=== PATIENT | male | born 1995 | race Two or more races ===

== ENCOUNTER 2021-04-24 20:48 | Emergency (ER) | payer SELFPAY ==
[2021-04-24] MEDS ORDERED: Sodium Chloride 0.9% 10 ML Syringe FLUSH PRN (21:05)
[2021-04-24] MEDS ORDERED: Aspirin 81 MG Tab.Chew ONE (21:32)
[2021-04-24] MEDS ORDERED: Nitroglycerin 0.4 MG Tab.SL SL PRN (21:32)
[2021-04-24] MEDS ORDERED: Aspirin 81 MG Tab.Chew PO ONE (21:32)
[2021-04-24] MEDS ORDERED: Nitroglycerin 0.4 MG Tab.SL ONE (21:32)
[2021-04-24 21:54] LABS: ANION GAP 13.4 mmol/L (5-15); CHLORIDE,CL 103 mmol/L (98-107); SODIUM,NA 139 mmol/L (136-145)
--- NOTE | 2021-04-24 21:55 | EDM.PDOC ---
ED HPI GENERAL MEDICAL PROBLEM - General Chief Complaint: General Stated Complaint: chest pain Time Seen by Provider: 04/24/21 21:13 Source of Information: Reports: Patient, Family (mom) History Limitations: Reports: No Limitations - History of Present Illness INITIAL COMMENTS - FREE TEXT/NARRATIVE: Patient presents with sharp severe pain in left upper chest, left shoulder, neck and upper back that started an hour ago. He rated it 9/10 on arrival and 8/10 now. He has never had this before. He has also had significant shortness of breath with it. EKG shows sinus bradycardia with arrhythmia; patient says he has had bradycardia for 5 years and has had pacemaker recommended twice by cardiology but he refused. He now deals with marked fatigue but no other major chronic related problems. He uses marijuana regularly. He used to use cocaine heavily but stopped 13 months ago. Denies meth use. Chest Pain Score (Numeric/FACES): 9 - Related Data Allergies Allergy/AdvReac Type Severity Reaction Status Date / Time chocolate flavor Allergy Cannot Verified 04/24/21 21:06 Remember Penicillins Allergy Cannot Verified 04/24/21 21:06 Remember watermelon Allergy Cannot Verified 04/24/21 21:06 Remember ED ROS GENERAL - Review of Systems Review Of Systems: See Below Constitutional: Denies: Fever, Weakness HEENT: Denies: Throat Pain, Vision Change Respiratory: Reports: Shortness of Breath. Denies: Cough Cardiovascular: Reports: Chest Pain. Denies: Syncope GI/Abdominal: Denies: Abdominal Pain, Vomiting : Denies: Dysuria, Flank Pain Musculoskeletal: Reports: Neck Pain, Shoulder Pain, Back Pain. Denies: Arm Pain, Hand Pain, Leg Pain Skin: Denies: Cyanosis, Jaundice, Mottled, Pallor, Diaphoresis Neurological: Denies: Confusion, Dizziness, Headache, Seizure, Syncope, Trouble Speaking, Difficulty Walking Psychiatric: Denies: Agitation, Anxiety, Confusion ED EXAM, GENERAL - Physical Exam Exam: See Below Exam Limited By: No Limitations General Appearance: Alert, WD/WN, No Apparent Distress Eye Exam: Bilateral Eye: EOMI, Normal Inspection, PERRL Ears: Normal External Exam, Hearing Grossly Normal Nose: Normal Inspection, No Blood Throat/Mouth: Normal Inspection, Normal Lips, Normal Voice, No Airway Compromise Head: Atraumatic, Normocephalic Neck: Normal Inspection, Supple, Non-Tender, Full Range of Motion Respiratory/Chest: No Respiratory Distress, Lungs Clear, Normal Breath Sounds, No Accessory Muscle Use, Chest Non-Tender Cardiovascular: Normal Peripheral Pulses, Regular Rate, Rhythm (with bradycardia most of the time) GI/Abdominal: Normal Bowel Sounds, Soft, Non-Tender, No Organomegaly, No Distention Back Exam: Full Range of Motion, Other (tender between left scapula and vertebrae). No: CVA Tenderness (L), CVA Tenderness (R) Extremities: Normal Inspection, Normal Range of Motion Neurological: Alert, Oriented, Normal Cognition, No Motor/Sensory Deficits Psychiatric: Normal Affect, Normal Mood Skin Exam: Warm, Dry, Intact, Normal Color, No Rash Course - Vital Signs Last Recorded V/S: Last Vital Signs Temp 97.8 F 04/24/21 20:57 Pulse 44 L 04/24/21 23:46 Resp 12 04/24/21 23:46 BP 136/77 04/24/21 23:46 Pulse Ox 99 04/24/21 23:46 - Orders/Labs/Meds Orders: Active Orders 24 hr Category Date Time Status EKG Documentation Completion [RC] ASDIRECTED Care 04/24/21 21:19 Active Peripheral IV Care [RC] . DIRECTED Care 04/24/21 21:05 Active Ang Chest [CT] Stat Exams 04/24/21 21:39 Ordered Nitroglycerin [Nitrostat] Med 04/24/21 21:32 Active 0.4 mg SL Q5M PRN Sodium Chloride 0.9% [Normal Saline] 100 ml Med 04/24/21 22:30 Active IV ASDIRECTED Sodium Chloride 0.9% [Saline Flush] Med 04/24/21 21:05 Active 10 ml FLUSH Q8HR PRN Peripheral IV Insertion Adult [OM.PC] Routine Oth 04/24/21 21:05 Ordered EKG 12 Lead [EK] Stat Ther 04/24/21 20:56 Ordered Medication Orders Sodium Chloride (Normal Saline) 100 mls @ 200 mls/hr IV ASDIRECTED SAMMY Last Admin: 04/24/21 22:30 Dose: 200 mls/hr Documented by: COLBY Nitroglycerin (Nitroglycerin 0.4 Mg Tab.Sl) 0.4 mg SL Q5M PRN PRN Reason: Chest Pain Last Admin: 04/24/21 21:32 Dose: 0.4 mg Documented by: MORIS Sodium Chloride (Sodium Chloride 0.9% 10 Ml Syringe) 10 ml FLUSH Q8HR PRN PRN Reason: keep vein open Last Admin: 04/24/21 21:13 Dose: 10 ml Documented by: MORIS Labs: Laboratory Tests 04/24/21 04/24/21 Range/Units 21:13 21:13 WBC 7.38 (5.00-10.00) 10^3/uL RBC 5.04 (4.50-6.00) 10^6/uL Hgb 16.2 (13.0-17.0) g/dL Hct 46.1 (40.0-52.0) % MCV 91.5 (82.0-92.0) fL MCH 32.1 H (27.0-31.0) pg MCHC 35.1 (32.0-36.0) g/dL RDW 12.1 (11.5-14.5) % Plt Count 325 (150-400) 10^3/uL MPV 9.4 (7.4-10.4) fL Immature Gran % (Auto) 0.4 (0.0-5.0) % Neut % (Auto) 55.8 (50.0-70.0) % Lymph % (Auto) 33.2 (20.0-40.0) % [place] % (Auto) 9.1 H (2.0-8.0) % Eos % (Auto) 1.2 (1.0-3.0) % Baso % (Auto) 0.3 (0.0-1.0) % Neut # (Auto) 4.12 (2.50-7.00) 10^3/uL Lymph # (Auto) 2.45 (1.00-4.00) 10^3/uL [place] # (Auto) 0.67 (0.10-0.80) 10^3/uL Eos # (Auto) 0.09 L (0.10-0.30) 10^3/uL Baso # (Auto) 0.02 (0.00-0.10) 10^3/uL Immature Gran # (Auto) 0.03 (0.00-0.50) 10^3/uL Sodium 139 (136-145) mmol/L Potassium 3.4 L (3.5-5.1) mmol/L Chloride 103 (98-107) mmol/L Carbon Dioxide 26.0 (21.0-32.0) mmol/L Anion Gap 13.4 (5-15) mmol/L BUN 12 (7-18) mg/dL Creatinine 0.73 (0.51-1.17) mg/dL Est Cr Clr Drug Dosing 163.65 mL/min Estimated GFR (MDRD) > 60 mL/min Glucose 105 (70-140) mg/dL Calcium 8.6 L (8.7-10.3) mg/dL Troponin I High Sens 6.500 (0-76.000) pg/mL Meds: Medications Generic Name Dose Route Start Last Admin Trade Name Jannet PRN Reason Stop Dose Admin Sodium Chloride 100 mls @ 200 mls/hr 04/24/21 22:30 04/24/21 22:30 Normal Saline IV 200 mls/hr ASDIRECTED SAMMY Administration Nitroglycerin 0.4 mg 04/24/21 21:32 04/24/21 21:32 Nitroglycerin 0.4 Mg Tab.Sl SL 0.4 mg Q5M PRN Administration Chest Pain Sodium Chloride 10 ml 04/24/21 21:05 04/24/21 21:13 Sodium Chloride 0.9% 10 Ml Syringe FLUSH 10 ml Q8HR PRN Administration keep vein open Discontinued Medications Generic Name Dose Route Start Last Admin Trade Name Jannet PRN Reason Stop Dose Admin Aspirin Confirm 04/24/21 21:32 04/24/21 21:43 Aspirin 81 Mg Tab.Chew Administered 04/24/21 21:33 Not Given Dose 324 mg .ROUTE .STK-MED ONE Aspirin 324 mg 04/24/21 21:32 04/24/21 21:32 Aspirin 81 Mg Tab.Chew PO 04/24/21 21:33 324 mg ONETIME ONE Administration Iopamidol 75 ml 04/24/21 22:25 04/24/21 22:30 Iopamidol 755 Mg/Ml 75 Ml Bottle IVPUSH 04/24/21 22:26 75 ml ONETIME ONE Administration Nitroglycerin Confirm 04/24/21 21:32 04/24/21 21:43 Nitroglycerin 0.4 Mg Tab.Sl Administered 04/24/21 21:33 Not Given Dose 0.4 mg .ROUTE .STK-MED ONE - Re-Assessments/Exams Free Text/Narrative Re-Assessment/Exam: 04/24/21 22:01 Pain dropped from 8/10 to 1-2/10 after nitro and aspirin. CBC, BMP, Trop normal. EKG shows sinus bradycardia with incomplete RBBB. I discussed case with hub cutter at [facility] who advised CT to rule out dissection, PE and pericarditis but cannot accept patient as they are full. If needing transfer will have to go elsewhere. 04/24/21 23:[address] shows no evidence of aortic dissection or PE. I discussed case with cardiology CAROLYN Deras at [facility] in [place]. She said they would likely monitor overnite and repeat troponin with planned echo and stress test in the morning. She said hospitalist would do admitting; I discussed case with Dr. Moctezuma who accepted for transfer to [facility]. I discussed findings and treatment plan and recommendations with patient and his mom. They agree. Patient stable at transfer time. Departure - Departure Time of Disposition: 23:41 Disposition: DC/Tfer to Acute Hospital 02 Condition: Good Clinical Impression: Sinus bradycardia, Incomplete RBBB Chest pain Qualifiers: Chest pain type: unspecified Qualified Code(s): R07.9 - Chest pain, unspecified Arrhythmia Qualifiers: Arrhythmia type: unspecified cardiac arrhythmia Qualified Code(s): I49.9 - Cardiac arrhythmia, unspecified - Discharge Information Referrals: Pura Jiménez MD [Primary Care Provider] - Forms: ED Department Discharge Sepsis Event Note (ED) - Evaluation Sepsis Screening Result: No Definite Risk - Focused Exam Vital Signs: Vital Signs Temp Pulse Resp BP BP Pulse Ox 04/24/21 23:46 44 L 12 136/77 99 04/24/21 23:30 42 L 12 130/83 99 04/24/21 23:16 46 L 14 134/89 98 04/24/21 23:01 50 L 14 131/76 97 04/24/21 22:45 50 L 13 119/97 H 98 04/24/21 22:30 50 L 17 131/77 97 04/24/21 22:01 53 L 12 122/89 98 04/24/21 21:45 62 12 134/94 H 95 04/24/21 21:32 153/94 H 04/24/21 21:31 64 14 153/94 H 97 04/24/21 21:15 53 L 16 151/104 H 97 04/24/21 21:00 53 L 9 L 152/93 H 97 04/24/21 20:57 97.8 F 59 L 19 155/89 H 97 - My Orders Last 24 Hours: My Active Orders 04/24/21 20:56 EKG 12 Lead [EK] Stat 04/24/21 21:05 Peripheral IV Care [RC] . DIRECTED Sodium Chloride 0.9% [Saline Flush] 10 ml FLUSH Q8HR PRN Peripheral IV Insertion Adult [OM.PC] Routine 04/24/21 21:19 EKG Documentation Completion [RC] ASDIRECTED 04/24/21 21:32 Nitroglycerin [Nitrostat] 0.4 mg SL Q5M PRN 04/24/21 21:39 Ang Chest [CT] Stat 04/24/21 22:30 Sodium Chloride 0.9% [Normal Saline] 100 ml IV ASDIRECTED - Assessment/Plan Last 24 Hours: My Active Orders 04/24/21 20:56 EKG 12 Lead [EK] Stat 04/24/21 21:05 Peripheral IV Care [RC] . DIRECTED Sodium Chloride 0.9% [Saline Flush] 10 ml FLUSH Q8HR PRN Peripheral IV Insertion Adult [OM.PC] Routine 04/24/21 21:19 EKG Documentation Completion [RC] ASDIRECTED 04/24/21 21:32 Nitroglycerin [Nitrostat] 0.4 mg SL Q5M PRN 04/24/21 21:39 Ang Chest [CT] Stat 04/24/21 22:30 Sodium Chloride 0.9% [Normal Saline] 100 ml IV ASDIRECTED
[2021-04-24] MEDS ORDERED: Iopamidol 755 Mg/ML 75 ML Bottle IVPUSH ONE (22:25)
[2021-04-24] MEDS ORDERED: Sodium Chloride 0.9% 100 ML IV SCH (22:30)
--- NOTE | 2021-04-25 07:59 | CT ---
[id number] CT/CTA Chest Exam: CTA Chest Clinical Data: CHEST PAIN COMPARISON: NO PREVIOUS SIMILAR EXAM IS AVAILABLE FINDINGS: No pulmonary emboli are seen The lungs are clear There is no pleural effusion. There is no mediastinal mass or adenopathy. The thoracic aorta is not opacified The adrenal glands are normal. IMPRESSION: NO PULMONARY EMBOLI Miguel North MD 04/25/21 0758 Thank you for allowing us to participate in the care of your patient.
== END 2021-04-25 00:02 ==
LOC: KA.ED 20:48
DX: I49.9 Cardiac arrhythmia, unspecified (principal); R00.1 Bradycardia, unspecified; I45.10 Unspecified right bundle-branch block; Z88.0 Allergy status to penicillin; Z91.018 Allergy to other foods
CPT/HCPCS: 71275; 80048; 84484; 85025; 99284; 99285-25; A9270-GY; Q9967

== ENCOUNTER 2021-06-12 00:03 | Emergency (ER) | payer MEDICAID ==
[2021-06-12] MEDS ORDERED: Sodium Chloride 0.9% 10 ML Syringe FLUSH PRN (00:36)
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
[2021-06-12 01:28] LABS: ANION GAP 17.2 mmol/L (5-15); CHLORIDE,CL 106 mmol/L (98-107); SODIUM,NA 143 mmol/L (136-145)
== END 2021-06-12 03:00 ==
LOC: KA.ED 00:03
DX: F32.9 Major depressive disorder, single episode, unspecified (principal); Z91.018 Allergy to other foods; Z88.0 Allergy status to penicillin; Z86.16 Personal history of COVID-19
CPT/HCPCS: 80053; 80143; 80307; 85025; 99284; 99285

== ENCOUNTER 2022-04-17 10:24 | Emergency (ER) | payer MEDICAID ==
[2022-04-17 11:16] LABS: ANION GAP 9.7 mmol/L (5-15)
[2022-04-17] MEDS: Sodium Chloride 0.9% 1,000 ML IV ONE (11:27)
[2022-04-17] MEDS: Ondansetron 4 MG/2 ML SDV IVPUSH ONE (11:57)
[2022-04-17 13:11] LABS: BARBITURATE SCREEN,URINE NEGATIVE (NEGATIVE); BENZODIAZEPINES SCREEN,URINE NEGATIVE (NEGATIVE); THC SCREEN,URINE 50 NG/ML POSITIVE (NEGATIVE)
[2022-04-17 13:12] LABS: TCA SCREEN,URINE NEGATIVE (NEGATIVE)
[2022-04-17] MEDS: Ketorolac 30 MG/ML SDV ONE (13:20)
[2022-04-17] MEDS: Ketorolac 30 MG/ML SDV IVPUSH ONE (13:21)
[2022-04-17] MEDS: Prochlorperazine 10 MG/2 ML SDV IVPUSH ONE (13:31)
== END 2022-04-17 14:15 | disposition home or self-care (01) ==
LOC: KA.ED 10:24
DX: K92.1 Melena (principal); R11.2 Nausea with vomiting, unspecified; R19.7 Diarrhea, unspecified; F17.210 Nicotine dependence, cigarettes, uncomplicated; I25.2 Old myocardial infarction; Z88.0 Allergy status to penicillin; Z91.018 Allergy to other foods; Z86.16 Personal history of COVID-19
CPT/HCPCS: 36415; 74021; 80053; 80305-QW; 81001; 82270; 83690; 84443; 85025; 86140; 87045; 87046; 87324; 87338; 96361; 96374; 96375; 99284; 99284-25; J0780; J1885; J2405; J7030

== ENCOUNTER 2022-05-28 08:06 | Day surgery (SDC) | payer MEDICAID ==
[~2022-05-28 08:06] MED LIST: Sodium Chloride 0.9% 10 ML Syringe FLUSH PRN
[2022-05-28] MEDS: Lactated Ringers 1,000 ML IV SCH (08:45)
[2022-05-28] MEDS ORDERED: Lidocaine 2% 5 ML SDV ONE (08:53)
[2022-05-28] MEDS ORDERED: Ketamine 200 MG/20 ML MDV ONE (08:53)
[2022-05-28] MEDS ORDERED: Glycopyrrolate 0.2 MG/ML SDV ONE (08:53)
[2022-05-28] MEDS ORDERED: Propofol 200 MG/20 ML SDV ONE (08:53)
[2022-05-28] MEDS ORDERED: Midazolam 1 MG/ML 2 ML SDV ONE (08:53)
[2022-05-28] MEDS: Lactated Ringers 1,000 ML ONE (10:27)
== END 2022-05-28 11:35 | disposition home or self-care (01) ==
LOC: KA.SDS 08:06
PROVIDERS: ATTEND Surgery
DX: K63.5 Polyp of colon (principal); Z79.83 Long term (current) use of bisphosphonates; Z88.0 Allergy status to penicillin; Z79.899 Other long term (current) drug therapy; Z79.84 Long term (current) use of oral hypoglycemic drugs
CPT/HCPCS: 00813; J2250; J2704; J3490; J7120

== ENCOUNTER 2025-05-01 18:05 | Emergency (ER) | payer SELFPAY ==
[2025-05-01 19:13] VITALS: BP 137/81; PULSE 84
== END 2025-05-01 19:12 | disposition home or self-care (01) ==
LOC: KA.ED 18:05
DX: S62.515A Nondisplaced fracture of proximal phalanx of left thumb, initial encounter for closed fracture (principal); Z88.0 Allergy status to penicillin; Z91.02 Food additives allergy status; Z86.16 Personal history of COVID-19; X50.1XXA Overexertion from prolonged static or awkward postures, initial encounter; Y93.72 Activity, wrestling
CPT/HCPCS: 73140-FA; 99283

== ENCOUNTER 2025-09-18 03:17 | Emergency (ER) | payer SELFPAY ==
[2025-09-18] MEDS ORDERED: Sodium Chloride 0.9% 10 ML Syringe FLUSH PRN (03:44)
[2025-09-18 03:49] LABS: BASOPHILS ABSOLUTE AUTO 0.03 10^3/uL (0.00-0.10); BASOPHILS PERCENT AUTO 0.2 % (0.0-1.0); EOSINOPHILS ABSOLUTE AUTO 0.12 10^3/uL (0.10-0.30); EOSINOPHILS PERCENT AUTO 1.0 % (1.0-3.0); IMMATURE GRAN ABSOLUTE AUTO 0.09 10^3/uL (0.00-0.04); IMMATURE GRAN PERCENT AUTO 0.7 % (0.0-0.4); LYMPHOCYTES ABSOLUTE AUTO 3.88 10^3/uL (1.00-4.00); LYMPHOCYTES PERCENT AUTO 31.4 % (20.0-40.0); MEAN PLATELET VOLUME 9.2 fL (7.4-10.4); MONOCYTES ABSOLUTE AUTO 1.07 10^3/uL (0.10-0.80); MONOCYTES PERCENT AUTO 8.6 % (2.0-8.0); NEUTROPHILS ABSOLUTE AUTO 7.18 10^3/uL (2.50-7.00); NEUTROPHILS PERCENT AUTO 58.1 % (50.0-70.0); PLATELET COUNT,PLT 392 10^3/uL (150-400); RED BLOOD CELL COUNT 5.43 10^6/uL (4.50-6.00); RED CELL DISTRIBUTION WIDTH 13.0 % (11.5-14.5); WHITE BLOOD CELL COUNT,WBC 12.37 10^3/uL (5.00-10.00)
[2025-09-18 04:02] LABS: ALANINE AMINOTRANSFERASE,ALT 57.0 U/L (14-63); ASPARTATE AMNIOTRANSFERASE,AST 36.0 U/L (15-37); BILIRUBIN TOTAL 0.5 mg/dL (0.2-1.0); BLOOD UREA NITROGEN,BUN 11.0 mg/dL (7-18); CARBON DIOXIDE,CO2 26.3 mmol/L (21.0-32.0); CHLORIDE,CL 101.0 mmol/L (98-107); CREATININE 0.75 mg/dL (0.51-1.17); EST CRCL DRUG DOSING (CG) 154.78 mL/min; GLUCOSE RANDOM 99.0 mg/dL (70-140); PROTEIN TOTAL,TP 8.6 g/dL (6.4-8.2); SODIUM,NA 140.0 mmol/L (136-145)
[2025-09-18 04:03] LABS: ESTIMATED GFR 125.0 mL/min (>=60); POTASSIUM,K 3.9 mmol/L (3.5-5.1)
[2025-09-18 04:04] LABS: ETHANOL BLOOD MEDICAL 245.0 mg/dL (<3)
[2025-09-18 05:10] LABS: AMPHETAMINES SCREEN, URINE POSITIVE (NEGATIVE); COCAINE METABOLITES,URINE NEGATIVE (NEGATIVE); METHADONE SCREEN, URINE NEGATIVE (NEGATIVE); METHAMPHETAMINES SCREEN, URINE NEGATIVE (NEGATIVE); OXYCODONE SCREEN,URINE NEGATIVE (NEGATIVE); PCP SCREEN,URINE NEGATIVE (NEGATIVE); TCA SCREEN,URINE NEGATIVE (NEGATIVE); THC SCREEN,URINE 50 NG/ML POSITIVE (NEGATIVE)
== END 2025-09-18 11:24 ==
LOC: KA.ED 03:17
DX: T71.162A Asphyxiation due to hanging, intentional self-harm, initial encounter (principal); F32.9 Major depressive disorder, single episode, unspecified; F10.10 Alcohol abuse, uncomplicated; Z88.0 Allergy status to penicillin; Z91.018 Allergy to other foods; Z88.8 Allergy status to other drugs, medicaments and biological substances; Z86.16 Personal history of COVID-19
CPT/HCPCS: 72040; 80053; 80143; 80179; 80305-QW; 80307; 85025; 96360; 99284; 99285-25; J7030